=== PATIENT | male | born 1965 | race Caucasian/White ===

== ENCOUNTER 2022-07-13 18:29 | Emergency (ER) | payer OTHER, SELFPAY ==
--- NOTE | ~2022-07-13 | XR_ITS ---
EXAMINATION: XR chest 2V DATE: 07/13/2022 22:04 INDICATION: Flulike symptoms TECHNIQUE: PA and lateral views of the chest were obtained. COMPARISON: None FINDINGS: Opacities in the medial right lower lung zone. No other airspace opacities, pulmonary edema, pleural effusion or pneumothorax. The cardiomediastinal silhouette is normal. Mild thoracic spondylosis. IMPRESSION: 1. Opacities at the medial right lower lung zone which could represent atelectasis or pneumonia. Reviewed, dictated and finalized at location A. IMPRESSION: 1. Opacities at the medial right lower lung zone which could represent atelecta sis or pneumonia.
[2022-07-13 18:53] VITALS: BP 104/60; PULSE 91; RESP 18; TEMP 36.9; O2SAT 100
[2022-07-13 20:44] LABS: SARS-CoV-2 RNA PCR Negative
[2022-07-13 20:56] VITALS: BP 111/82; PULSE 90; RESP 18; O2SAT 98
--- NOTE | 2022-07-13 21:53 | ECG_ITS ---
Measurements Intervals [place] Rate: 77 P: 59 MI: 151 QRS: 41 QRSD: 95 T: 33 QT: 345 QTc: 392 Interpretive Statements SINUS RHYTHM NO PREVIOUS ECG AVAILABLE FOR COMPARISON Electronically Signed On 07-14-2022 8:55:49 CDT by Edelmira Valdes M.D.
--- NOTE | 2022-07-13 22:02 | ED.GENADULT ---
HPI - General Adult General Chief complaint: Fever Stated complaint: Multiple Issues Time Seen by Provider: 07/13/22 21:12 History of Present Illness HPI narrative: This is a 56-year-old male presenting to ED with chief complaint of flu-like symptoms. Start on Friday the patient started to feel weak. He has had persistent nausea and vomiting with decreased oral intake. He has also had multiple episodes of diarrhea every day. He also admits to fever and chills. Denies chest pain, productive cough, difficulty breathing, abdominal pain, dysuria. He denies sick contacts at home. Patient denies sick contacts at home. He is not vaccinated against flu a COVID. He was seen at [facility] where he was tested negative for COVID but was not swabbed for flu at that time. Patient also states that he has had some numb was and tingling in his legs. He denies true weakness. Related Data Allergies Allergy/AdvReac Type Severity Reaction Status Date / Time No Known Allergies Allergy Verified 07/13/22 22:16 Review of Systems Review of Systems: CONSTITUTIONAL: Denies night sweats. EYES: No eye pain ENT: Denies rhinorrhea CARDIOVASCULAR: Denies palpitations RESPIRATORY: Denies hemoptysis GASTROINTESTINAL: Denies hematemesis GENITOURINARY: Denies hematuria. SKIN: Denies rash MUSCULOSKELETAL: Denies myalgia. NEUROLOGIC: Denies weakness. PSYCHIATRIC: Denies delusions Exam Narrative: APPEARANCE: No apparent distress. Head atraumatic. EYES: PERRLA/EOMI, NOSE: Normal no drainage NECK: Supple, Trachea midline RESPIRATORY: CTAB, No increased work of breathing. CARDIOVASCULAR: S1S2 appreciated ABDOMINAL: Soft, nontender, nondistended, MUSCULOSKELETAl: No obvious deformities NEURO: Alert. Special attention was made to the lower extremities that have no evidence of weakness at the hip knee or ankle. Sensation light touch is intact. Patient is able ambulate without difficulty. SKIN:: Warm, dry. Normal color PSYCHIATRIC: Normal affect Course Vital Signs Vital signs: Vital Signs Temperature 98.4 F 07/13/22 18:53 Pulse Rate 91 07/13/22 18:53 Respiratory Rate 18 07/13/22 18:53 Blood Pressure 104/60 07/13/22 18:53 Pulse Oximetry 100 07/13/22 18:53 Temperature 98.4 F 07/13/22 18:53 Pulse Rate 74 07/14/22 00:07 Respiratory Rate 18 07/14/22 00:07 Blood Pressure 104/74 07/14/22 00:07 Pulse Oximetry 100 07/14/22 00:07 Medical Decision Making MDM Narrative Medical decision making narrative: This is a 56-year-old male presenting ED with flu-like symptoms since Friday. The patient has persistent nausea vomiting diarrhea And is likely dehydrated.. Basic lab work, chest x-ray, flu and COVID swabs have been ordered. He has been given Motrin Tylenol for his body aches. My interpretation of the chest x-ray was a normal chest. EKG interpretation: Rhythm [sinus], Rate 77, [place] -[normal], [place] -[normal], QRS [narrow], QTC [normal], T waves -[negative for concerning inversions], ST Segments - [Negative for concerning elevations] Final interpretations: [Normal Sinus Rhythm] Flu and COVID negative. Patient's lab work was significant for a elevated BUN and creatinine. I do not have a baseline which to compare but his BUN/CR was 41/2.5. potassium was normal. I discussed the patient's results with him and he does not know what his baseline kidney function is. I did give him multiple L of fluid and repeated his basic metabolic panel to see if his kidney injury was responsive to fluids and his creatinine has trended in the correct direction. I have explained the importance of the patient drinking water when he gets home. I offered admission and the patient refused as he wants to go back to work. Patient be discharged with instructions to follow up with primary care physician. He has been instructed return emergency department's conditions worsen. Vital Signs Vital Signs: Vital Signs T
[2022-07-13] MEDS: ACETAMINOPHEN 500 MG TABLET 1000 MG PO (22:17)
[2022-07-13] MEDS: IBUPROFEN 400 MG TABLET 800 MG PO (22:17)
[2022-07-13] MEDS: SODIUM CHLORIDE 0.9% IV 2,000 ML 999 ML IV CONT (22:19)
[2022-07-13 22:26] LABS: Basophils Percent Auto 0.3 % (0.2-1.2); Eosinophils Percent Auto 0.1 % (0-4.4); Hematocrit 39.8 % (42.0-52.0); Hemoglobin 13.4 g/dL (14.0-18.0); Immature Granulocyte Absolute 0.05 K/mm3 (0.00-0.031); Immature Granulocyte Percent A 0.6 % (0-0.5); Lymphocytes Absolute Auto 0.84 K/mm3 (0.9-3.2); Lymphocytes Percent Auto 10.6 % (18.3-44.2); Mean Corpuscular HGB Conc 33.7 g/dl (32-36); Mean Corpuscular Hemoglobin 33.9 pg (26-34); Mean Corpuscular Volume 100.8 fl (80-100); Mean Platelet Volume 10.1 fl (7.4-10.4); Monocytes Absolute Auto 0.8 K/mm3 (0.1-0.6); Monocytes Percent Auto 10.6 % (2.6-8.5); Neutrophils Absolute Auto 6.2 K/mm3 (1.3-6.7); Neutrophils Percent Auto 77.8 % (45.5-73.1); Platelet Count Result 220 k/mm3 (150-375); Red Blood Count 3.95 M/mm3 (4.6-6.20); Red Cell Distribution Width 13.2 % (11.5-14.5); White Blood Count 7.9 K/mm3 (4.5-10.0)
[2022-07-13 22:38] LABS: Anion Gap 15 mmol/L (8-16); Blood Urea Nitrogen 41 mg/dL (9-20); Calcium 9.4 mg/dL (8.4-10.2); Carbon Dioxide 25 mmol/L (22-30); Chloride 95 mmol/L (98-107); Estimated CRCL calculation 27 ml/min; Estimated Glomerular Filt Rate 27; Glucose 114 mg/dL (65-110); Magnesium 2.4 mg/dL (1.6-2.3); Potassium 3.7 mmol/L (3.4-5.0); Sodium 135 mmol/L (137-145)
[2022-07-14 00:07] VITALS: BP 104/74; PULSE 74; RESP 18; O2SAT 100
[2022-07-14] MEDS: SODIUM CHLORIDE 0.9% IV 1,000 ML 999 ML IV CONT (00:09)
--- NOTE | 2022-07-14 00:14 | PC.NURSE ---
Flu swab added on to Covid swab already in lab.
[2022-07-14 00:43] LABS: Anion Gap 12 mmol/L (8-16); Blood Urea Nitrogen 41 mg/dL (9-20); Calcium 8.4 mg/dL (8.4-10.2); Carbon Dioxide 21 mmol/L (22-30); Chloride 98 mmol/L (98-107); Estimated CRCL calculation 31 ml/min; Estimated Glomerular Filt Rate 31; Glucose 109 mg/dL (65-110); Potassium 3.7 mmol/L (3.4-5.0); Sodium 131 mmol/L (137-145)
[2022-07-14] MEDS: FAMOTIDINE 20 MG/2 ML VIAL IV PUSH (01:06)
[2022-07-14 01:33] LABS: Influenza A QL RT-PCR Negative (Negative); Influenza B QL RT-PCR Negative (Negative)
[2022-07-14 02:00] VITALS: PULSE 69; RESP 25; O2SAT 96
--- NOTE | 2022-07-14 15:39 | PC.NURSE ---
PER DR. QUIROGA'S REQUEST THIS PT WAS CALLED REGARDING CXR OVER READ. VOICEMAIL ASKING PT TO CALL [facility] ED. PT'S CXR CONCERNING FOR POSSIBLE PNEUMONIA VERSUS ATELECTASIS. PT MAY RETURN TO ED OR GET APPOINT WITH HIS PCP IZA
--- NOTE | 2022-07-14 16:59 | PC.NURSE ---
SPOKE WITH PT AND RANDALL WILL BE CALLED TO PHARMACY PER DR. QUIROGA
== END 2022-07-14 02:20 | disposition home or self-care (01) ==
PROVIDERS: Emergency Provider Emergency Medicine
DX: K52.9 Noninfective gastroenteritis and colitis, unspecified (principal); B34.9 Viral infection, unspecified; E86.0 Dehydration; N17.9 Acute kidney failure, unspecified; Z20.822 Contact with and (suspected) exposure to COVID-19; Z28.310 Unvaccinated for COVID-19
CPT/HCPCS: 36415; 71046; 80048; 83735; 85025; 87502; 93005; 96361; 96374; 99284; A9270; C9803; J7030; U0003; U0005